=== PATIENT | male | born 1945 | race Caucasian/White ===

== ENCOUNTER → 2016-03-20 | Outpatient (CLI) | payer BC ==
[~2016-03-20] MED LIST: ASPI-435 PO; DIPH25TA24 PO; HYDC25 PO; POTA10CA28 PO; PRVC/40 PO
== END | disposition home or self-care (01) ==
LOC: C.LABBC 07:23
PROVIDERS: ATTEND Urology
DX: N40.1 Benign prostatic hyperplasia with lower urinary tract symptoms (principal)

== ENCOUNTER → 2016-04-15 | Outpatient (CLI) | payer BC ==
--- NOTE | 2016-04-15 11:19 | DIAGNOSTIC IMAGING REPORT ---
RIGHT FOOT MIN 3 VIEWS ROUTINE CLINICAL HISTORY: M79.671 Pain of right heel acute right heel [id number] Right pain COMPARISON: None. DISCUSSION: The bones and joint spaces appear intact. There is no evidence of fracture, dislocation or bony disease. There is no evidence for soft tissue swelling. IMPRESSION: Negative study. Electronically signed by: Ezra Parrish M.D. 04/15/2016 11:17 AM Dictated Date/Time: 04/15/2016 11:17 AM
[2016-04-15 13:11] LABS: HEMATOCRIT 45.9 % (42-52); MEAN CELL VOLUME 90.9 fL (80-100); MEAN CORPUSCULAR HEMOGLOBIN 31.5 pg (25-34); MEAN CORPUSCULAR HGB CONC 34.6 g/dl (32-36); MEAN PLATELET VOLUME 10.3 fL (7.4-10.4); PLATELET COUNT 201 K/uL (130-400); RED BLOOD COUNT 5.05 M/uL (4.7-6.1); WHITE BLOOD COUNT 7.06 K/uL (4.8-10.8)
== END | disposition home or self-care (01) ==
LOC: C.RADBC 10:42
PROVIDERS: ATTEND Internal Medicine
DX: M79.671 Pain in right foot (principal)

== ENCOUNTER → 2016-05-04 | Outpatient (CLI) | payer BC ==
--- NOTE | 2016-05-04 16:22 | DIAGNOSTIC IMAGING REPORT ---
CHEST 2 VIEWS ROUTINE CLINICAL HISTORY: Persistent cough COMPARISON STUDY: No previous studies for comparison. FINDINGS: The cardiac and mediastinal contours are normal. There is no evidence of focal pulmonary consolidation. There is no evidence of failure. There is minor blunting of the right posterior costophrenic angle..[ Linear opacities at the left lung base are felt to be atelectatic. IMPRESSION: 1. Minimal blunting of the right posterior costophrenic angle 2. Left basilar opacities, likely atelectatic 3. No evidence of failure. No evidence of lobar consolidation. Electronically signed by: Adryan Chirinos M.D. 05/04/2016 4:21 PM Dictated Date/Time: 05/04/2016 4:20 PM
== END | disposition home or self-care (01) ==
LOC: C.RAD1850 15:57
PROVIDERS: ATTEND Internal Medicine Geriatric Medicine
DX: R05 Cough (principal)

== ENCOUNTER → 2016-05-22 | Outpatient (CLI) | payer BC ==
--- NOTE | 2016-05-22 09:51 | DIAGNOSTIC IMAGING REPORT ---
CHEST 2 VIEWS ROUTINE CLINICAL HISTORY: R05 [id number] dyspnea COMPARISON STUDY: 05/04/2016 FINDINGS: Slight parenchymal prominence left lung base considered chronic. No well-defined focal infiltrate. No evidence for cardiac enlargement. Diaphragms smooth. IMPRESSION: Chronic basilar change. No acute process. Electronically signed by: Ezra Parrish M.D. 05/22/2016 9:50 AM Dictated Date/Time: 05/22/2016 9:49 AM
== END | disposition home or self-care (01) ==
LOC: C.RADBC 09:24
PROVIDERS: ATTEND Internal Medicine Geriatric Medicine
DX: R05 Cough (principal)

== ENCOUNTER → 2016-09-22 | Outpatient (CLI) | payer BC ==
--- NOTE | 2016-09-22 11:23 | DIAGNOSTIC IMAGING REPORT ---
LEFT KNEE 3 VIEWS CLINICAL HISTORY: 71 years-old Male presenting with left knee pain for a few months, no known injury or trauma. TECHNIQUE: Frontal, lateral, and sunrise views of the left knee were obtained. COMPARISON: None. FINDINGS: Knee joint is congruent. The joint space is preserved. Minimal osteophytosis may be present along the medial facet at the patellofemoral joint, however, overall there is no significant degenerative change. No acute fracture or malalignment. No knee joint effusion. Soft tissues are grossly normal. Atherosclerosis. IMPRESSION: 1. No significant osseous abnormality. Electronically signed by: Russ Iqbal M.D. 09/22/2016 11:22 AM Dictated Date/Time: 09/22/2016 11:20 AM
== END | disposition home or self-care (01) ==
LOC: C.RADBC 10:59
PROVIDERS: ATTEND Physician Assistant
DX: M25.562 Pain in left knee (principal)

== ENCOUNTER → 2016-11-18 | Outpatient (CLI) | payer BC ==
--- NOTE | 2016-11-18 09:17 | DIAGNOSTIC IMAGING REPORT ---
CHEST 2 VIEWS ROUTINE CLINICAL HISTORY: RHONCHI dyspnea COMPARISON STUDY: 05/22/2016 FINDINGS: Mild stable cardia megaly. Minimal parenchymal infiltrative change left and to lesser extent right base. Mid and upper lungs are clear. IMPRESSION: Mild left and to lesser extent right basilar parenchymal infiltrate. The above report was generated using voice recognition software. It may contain grammatical, syntax or spelling errors. Electronically signed by: Ezra Parrish M.D. 11/18/2016 9:16 AM Dictated Date/Time: 11/18/2016 9:15 AM
== END | disposition home or self-care (01) ==
LOC: C.RADBC 09:05
PROVIDERS: ATTEND Internal Medicine
DX: R09.89 Other specified symptoms and signs involving the circulatory and respiratory systems (principal)

== ENCOUNTER → 2016-12-08 | Outpatient (CLI) | payer BC ==
[2016-12-08 09:45] LABS: BASO % 1.6 %; BASO ABS # 0.08 K/uL (0-0.2); COMPLETE YES; HEMATOCRIT 46.9 % (42-52); IG% 0.2 %; LYMPH % 36.5 %; LYMPH ABS # 1.83 K/uL (1.2-3.4); MEAN CELL VOLUME 91.2 fL (80-100); MEAN CORPUSCULAR HEMOGLOBIN 31.3 pg (25-34); MEAN CORPUSCULAR HGB CONC 34.3 g/dl (32-36); MEAN PLATELET VOLUME 10.3 fL (7.4-10.4); MONO % 4.6 %; NEUT % 53.1 %; PLATELET COUNT 217 K/uL (130-400); RED BLOOD COUNT 5.14 M/uL (4.7-6.1); WHITE BLOOD COUNT 5.02 K/uL (4.8-10.8)
[2016-12-08 10:02] LABS: ESTIMATED AVERAGE GLUCOSE 108 mg/dl; HA1C FLAG Normal (Normal)
[2016-12-08 10:08] LABS: ALT/SGPT 33 U/L (12-78); BLOOD UREA NITROGEN 23 mg/dl (7-18); BUN/CREATININE RATIO 25.2 (10-20); CALCIUM 9.2 mg/dl (8.5-10.1); CARBON DIOXIDE 25 mmol/L (21-32); CHLORIDE 106 mmol/L (98-107); CHOLESTEROL 157 mg/dl (0-200); CREATININE 0.93 mg/dl (0.60-1.40); GLUCOSE 83 mg/dl (70-99); POTASSIUM 3.7 mmol/L (3.5-5.1); SODIUM 140 mmol/L (136-145); TRIGLYCERIDES 109 mg/dl (0-150); VERY LOW DENSITY LIPOPROT CALC 22 mg/dl
[2016-12-08 10:11] LABS: ALB/GLOB RATIO 1.2 (0.9-2); ALKALINE PHOSPHATASE 52 U/L (45-117); AST/SGOT 20 U/L (15-37); HDL CHOLESTEROL 39 mg/dl; LDL CHOLESTEROL CALCULATED 96 mg/dl
--- NOTE | 2016-12-15 11:53 | CODING QUERY MEDICAL NECESSITY ---
SUPPORTING DIAGNOSIS NEEDED Dr. Heller, A supporting diagnosis is required for the test/procedure performed on this patient in order for us to be reimbursed by the patient's insurance. Please provide a supporting diagnosis for the following test/procedure listed below next to the test name along with your signature. *If there is no additional diagnosis for this patient that would support the following test/procedure please document that below next to the test/procedure. Test(s)/Procedure(s) that require a supporting diagnosis: * 87420 GLYCATED HEMOGLOBIN DIAGNOSIS: DATE OF SERVICE: 12/08/16 Provider Signature: Date: Thank you Mike [facility] Information Management Once completed, please kindly fax back to [phone] For questions please call [phone]
== END | disposition home or self-care (01) ==
LOC: C.LAB 07:01
PROVIDERS: ATTEND Internal Medicine
DX: N20.0 Calculus of kidney (principal)

== ENCOUNTER → 2016-12-11 | Outpatient (CLI) | payer BC ==
--- NOTE | 2016-12-11 11:35 | DIAGNOSTIC IMAGING REPORT ---
TWO VIEW CHEST CLINICAL HISTORY: Rhonchi. Follow-up abnormal chest x-ray. FINDINGS: PA and lateral chest radiographs are compared to study dated 11/18/2016. The heart is top normal for projection. The pulmonary vasculature is noncongested. There is mild atherosclerotic calcification of the thoracic aorta. There is elevation of the right hemidiaphragm. There are mild residual patchy airspace opacities present at both lung bases. This has significantly cleared from 11/18/2016. There is no pleural effusion or pneumothorax. The skeletal structures appear osteopenic. The bony thorax appears intact. IMPRESSION: There are bibasilar airspace opacities which have largely cleared from 11/18/2016. Continued follow-up to complete resolution is recommended. Electronically signed by: Tyrese Marie M.D. 12/11/2016 11:34 AM Dictated Date/Time: 12/11/2016 11:33 AM
== END | disposition home or self-care (01) ==
LOC: C.RADBC 11:12
PROVIDERS: ATTEND Internal Medicine
DX: R09.89 Other specified symptoms and signs involving the circulatory and respiratory systems (principal); R91.8 Other nonspecific abnormal finding of lung field

== ENCOUNTER → 2016-12-26 | Outpatient (CLI) | payer BC ==
--- NOTE | 2016-12-26 09:44 | DIAGNOSTIC IMAGING REPORT ---
CHEST 2 VIEWS ROUTINE CLINICAL HISTORY: J18.9 Pneumonia COMPARISON STUDY: December 11, 2016 FINDINGS: The cardiac and mediastinal contours remain stable. There is been resolution of the previously identified bibasal airspace opacities. There is no acute parenchymal consolidation. There is no failure. There are no pleural effusions.[ IMPRESSION: No active disease in the chest. Electronically signed by: Adryan Chirinos M.D. 12/26/2016 9:42 AM Dictated Date/Time: 12/26/2016 9:42 AM
== END | disposition home or self-care (01) ==
LOC: C.RADBC 09:22
PROVIDERS: ATTEND Nurse Practitioner Adult Health
DX: J18.9 Pneumonia, unspecified organism (principal)

== ENCOUNTER → 2017-05-15 | Outpatient (CLI) | payer BC | END | disposition home or self-care (01) | LOC: C.LAB 09:00 | PROVIDERS: ATTEND Urology | DX: N40.1 Benign prostatic hyperplasia with lower urinary tract symptoms (principal) ==

== ENCOUNTER 2024-06-05 07:31 | Observation (INO) ==
--- NOTE | 2024-05-30 13:32 | Anesthesiology Consultation ---
Date of Service May 30, 2024 Assessment & Plan (1) Encounter for pre-operative examination: - Infectious disease screening: Per assessment on 05/30/24- No known recent infectious disease contacts or current infectious disease symptoms. - Neurosurgery visit (07/18/23): "..Incidental finding on CTA of basilar severe stenosis vs occlusion.. CTA Head/Neck 07/10/2023.. 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 Marked luminal stenosis of the mid basilar artery." F/U one year. Chart Review Chart Review: Acceptable Risk for Surgery and Patient NOT seen in Pre Admission Testing History Surgery Operation Date: 06/05/24 08:40 Proposed Procedures p TURP (Transurethral Resection of the Prostate), Prostate Mass, - Jonnathan Neives DO s Transurethral Resection of the Bladder - Jonnathan Nieves DO Height/Weight Height: 5 ft 8 in Weight: 92.986 kg Allergies Allergy/AdvReac Type Severity Reaction Status Date / Time bee venom protein (honey bee) Allergy Unknown Anaphylaxis Verified 05/30/24 12:09 - HAVEN'T HAD THAT IN YEARS PER PT No Known Drug Allergies Allergy Unknown Verified 05/30/24 12:09 Medications Home Medications Medication Instructions Recorded Confirmed Last Taken omega-3 fatty acids 1,000 mg 1,000 mg PO QAM 12/28/20 05/30/24 02/22/23 capsule (Fish Oil Concentrate) mecobalamin (vitamin B12) 1,000 1,000 mcg PO QAM 09/11/22 05/30/24 02/27/23 mcg chewable tablet carbidopa 25 mg-levodopa 100 mg 2 tab PO TID 11/27/22 05/30/24 03/01/23 06:00 tablet diphenhydramine HCl 25 mg capsule 12.5 mg PO HS Sleep 11/27/22 05/30/24 02/28/23 21:00 (Benadryl) nitroglycerin 0.4 mg sublingual 0.4 mg sublingual UD PRN Chest 03/15/23 05/30/24 Unknown tablet Pain #20 tabs acetaminophen 500 mg tablet 1,000 mg PO BID 05/30/24 05/30/24 Unknown alfuzosin 10 mg tablet,extended 10 mg PO QPM 05/30/24 05/30/24 Unknown release 24 hr cholecalciferol (vitamin D3) 25 25 mcg PO QAM 05/30/24 05/30/24 Unknown mcg (1,000 unit) capsule (Vitamin D3) dutasteride 0.5 mg capsule 0.5 mg PO QAM 05/30/24 05/30/24 Unknown melatonin 3 mg capsule 3 mg PO HS 05/30/24 05/30/24 Unknown potassium citrate 10 mEq (1,080 10 meq PO QAM 05/30/24 05/30/24 Unknown mg) tablet,extended release pravastatin 80 mg tablet 80 mg PO QAM 05/30/24 05/30/24 Unknown Past Medical History Medical History Basilar artery stenosis Under surveillance by [facility] neurosurgery Head/neck CTA 06/2023: Marked luminal stenosis of the mid basilar artery BPH with obstruction/lower urinary tract symptoms Bulging disc Lumbar History of COVID-19 10/2022- no current issues 2023- resolved Hx of bladder cancer Dx 02/2023 Hx of renal calculi Hyperlipidemia Hx Lumbar stenosis Mild balance issues due to lumbar issues- improved with PT Organic insomnia Parkinson disease "Stable - relatively mild" Snores No formal sleep study Vertebral artery stenosis Under surveillance by [facility] neurosurgery Head/neck CTA 06/2023: 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 Past Family History Family History Mother Alcoholism in family COPD (chronic obstructive pulmonary disease) Father Alcoholism in family Myocardial infarction Sister Alzheimer disease Breast cancer Brother Myocardial infarction Denies family history of Ovarian cancer Prostate cancer Diabetes Lung cancer Colorectal cancer Stroke Past Surgical History Surgical History Amputation finger left ring History of cardiac cath 2017- no stents History of cataract surgery R/L History of colonoscopy (2021) History of cystoscopy History of surgery Left leg- pins/screws (hardware remains) History of transurethral resection of bladder tumor (TURBT) 02/2023 History of urologic surgery R/t kidney stone S/P epidural steroid injection x2 Social History Smoking Status: Never smoker Do You Dip or Chew Tobacco: No Hx Alcohol Use: Yes Alcohol type: beer alcohol intake frequency: 0-2 drinks per day Hx Substance Use: No substance use type: does not use Lab Results Anesthesia Preop Results Results Anesthesia Widget: WBC 6.89 K/ul (4.8-10.8) 05/13/24 Hgb 16.2 g/dl (14.0-18.0) 05/13/24 Hct 47.9 % (42.0-52.0) 05/13/24 Plt 222 K/uL (130-400) 05/13/24 Na 141 mmol/L (136-145) 05/13/24 K 4.5 mmol/L (3.5-5.1) 05/13/24 Cl 106 mmol/L (98-107) 05/13/24 CO2 30 mmol/L (21-32) 05/13/24 BUN 28 mg/dl (6-23) H 05/13/24 Creat 0.92 mg/dl (0.6-1.4) 05/13/24 Glucose Level 95 mg/dl (70-99(Fasting)) 05/13/24 Testing Electrocardiogram Date: 05/13/24 Findings: + NSR @ (60) Chest X-Ray Date: 05/13/24 FINDINGS: Stable mild cardiomegaly without pulmonary vascular congestion. Stable minimal scarring in the lung bases. No new consolidation or pleural effusion. No gross evidence of pulmonary metastatic disease seen. IMPRESSION: No acute findings. Cardiac Catheterization Date: 01/16/18 Findings: LM -angiographically normal LAD -moderate caliber vessel, tapers in the mid segment after takeoff of first diagonal. Distal vessel is small with luminal irregularities and ends before apex. First diagonal without significant disease. Circumflex -moderate caliber vessel without significant disease. Moderate caliber OM 2 without disease. RCA -dominant, large caliber vessel, angiographically normal LVEDP -15 Summary: Essentially normal coronary arteries. Normal intracardiac filling pressure Other Testing Head/Neck CTA Date: 07/10/23 1. No acute intracranial abnormality detected by CT. 2. 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 3. Marked luminal stenosis of the mid basilar artery.
[2024-06-05] MEDS ORDERED: fentaNYL citrate PF 100 MCG/2 ML VIAL ONE (07:55)
[2024-06-05] MEDS ORDERED: PROPOFOL IV EMULSION 10 MG/ML 20 ML VIAL IV ONE ×2 (07:56→09:03)
[2024-06-05] MEDS ORDERED: fentaNYL citrate PF 100 MCG/2 ML VIAL IV PRN (08:04)
[2024-06-05] MEDS ORDERED: ATROPINE SULFATE 0.1 MG/ML 10ML SYR IV PRN (08:04)
[2024-06-05] MEDS ORDERED: ONDANSETRON INJ 2 MG/ML 2 ML VIAL IV PRN (08:04)
[2024-06-05] MEDS ORDERED: ePHEDrine sulfate 50 MG/ML AMP IV PRN (08:04)
[2024-06-05] MEDS: LR 15ML/HR IV SCH (08:12)
--- NOTE | 2024-06-05 08:23 | History & Physical Report ---
Date of Service June 05, 2024 Assessment & Plan (1) Bladder cancer: (2) Bladder mass: (3) Parkinsonism: (4) Metabolic disorder: (5) Borderline high blood pressure: Plan Risks and benefits discussed at length for procedure. These include bleeding, infection, injury to surrounding tissues or organs, and risks associated with anesthesia. Patient states understanding and agrees to proceed. Will sign consent and schedule. Plan for Cytoscopy with Possible TURBT, Possible TURP. History of Present Illness Primary Care Provider: Jose Bland DO Patient here for procedure. No changes in medical issues. No major changes in urinary issues. Continued issues and concerns. No change in pain or discomfort. No severe fevers or chills. No chest pain or shortness of breath. Risks and benefits discussed at length for procedure. These include bleeding, infection, injury to surrounding tissues or organs, and risks associated with anesthesia. Patient and/or family states understanding and agrees to proceed. Consent and supporting information completed. Allergies Allergy/AdvReac Type Severity Reaction Status Date / Time bee venom protein (honey bee) Allergy Unknown Anaphylaxis Verified 06/05/24 07:39 - HAVEN'T HAD THAT IN YEARS PER PT No Known Drug Allergies Allergy Unknown Verified 06/05/24 07:39 Home Medications Medication Instructions Recorded Confirmed Type omega-3 fatty acids 1,000 mg 1,000 mg PO QAM 12/28/20 06/05/24 History capsule (Fish Oil Concentrate) mecobalamin (vitamin B12) 1,000 1,000 mcg PO QAM 09/11/22 06/05/24 History mcg chewable tablet carbidopa 25 mg-levodopa 100 mg 2 tab PO TID 11/27/22 06/05/24 History tablet diphenhydramine HCl 25 mg capsule 12.5 mg PO HS Sleep 11/27/22 06/05/24 History (Benadryl) nitroglycerin 0.4 mg sublingual 0.4 mg sublingual UD PRN Chest 03/15/23 06/05/24 Rx tablet Pain #20 tabs acetaminophen 500 mg tablet 1,000 mg PO BID 05/30/24 06/05/24 History alfuzosin 10 mg tablet,extended 10 mg PO QPM 05/30/24 06/05/24 History release 24 hr cholecalciferol (vitamin D3) 25 25 mcg PO QAM 05/30/24 06/05/24 History mcg (1,000 unit) capsule (Vitamin D3) dutasteride 0.5 mg capsule 0.5 mg PO QAM 05/30/24 06/05/24 History melatonin 3 mg capsule 3 mg PO HS 05/30/24 06/05/24 History potassium citrate 10 mEq (1,080 10 meq PO QAM 05/30/24 06/05/24 History mg) tablet,extended release pravastatin 80 mg tablet 80 mg PO QAM 05/30/24 06/05/24 History Past Med/Surg History Problem List Bladder cancer Bladder mass Basilar artery stenosis Seen by [facility] 01/09/23- repeat imaging 06/2023 Parkinsonism Lymphocytic colitis Chronic diarrhea Encounter for pre-operative examination BPH with obstruction/lower urinary tract symptoms Solar dermatitis Cataract Borderline high blood pressure Neurogenic claudication Lumbar spinal stenosis Erectile dysfunction (Acute) Metabolic disorder (Chronic) Nocturia (Chronic) Organic insomnia Medical History Vertebral artery stenosis Under surveillance by [facility]surgery Head/neck CTA 06/2023: 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 Organic insomnia Hx of renal calculi BPH with obstruction/lower urinary tract symptoms Hx of bladder cancer Dx 02/2023 Basilar artery stenosis Under surveillance by [facility]surgery Head/neck CTA 06/2023: Marked luminal stenosis of the mid basilar artery Parkinson disease "Stable - relatively mild" History of COVID-19 10/2022- no current issues 2023- resolved Snores No formal sleep study Lumbar stenosis Mild balance issues due to lumbar issues- improved with PT Bulging disc Lumbar Hyperlipidemia Hx Surgical History S/P epidural steroid injection x2 History of transurethral resection of bladder tumor (TURBT) 02/2023 History of cystoscopy History of surgery Left leg- pins/screws (hardware remains) History of urologic surgery R/t kidney stone History of cataract surgery R/L History of cardiac cath 2017- no stents History of colonoscopy (2021) Amputation finger left ring Family History Mother Alcoholism in family COPD (chronic obstructive pulmonary disease) Father Alcoholism in family Myocardial infarction Sister Alzheimer disease Breast cancer Brother Myocardial infarction Denies family history of Ovarian cancer Prostate cancer Diabetes Lung cancer Colorectal cancer Stroke Social History Smoking Status: Never smoker Second Hand Exposure: Yes (hx); Do You Dip or Chew Tobacco: No; Tobacco Cessation Education Requested by Patient: No Hx Alcohol Use: Yes Alcohol type: beer Alcohol Intake Frequency: 4 or More x per/Week Hx Substance Use: No Preferred Language: Czech Communication Ability: Effective Visual Impairment: Limited Hearing Ability: Normal Waste Reduction Coordinator Required: No Beliefs That Will Affect Care: None marital status: Current Living Situation: Spouse current occupational status: retired How many Children do You have: 3 Other Information That Helps Us Care for You: No Feels Safe at Home: Yes Safety Concerns: Feels Safe At This Time Childhood Exposure to Second-Hand Smoke: Yes caffeine: Yes Dental Care, Regularly: Yes Physical Activity Frequency: 1-2 Times per Week Seatbelt Use: always Sunscreen Use: Yes Assistive Devices: Cane and Glasses Review of Systems All systems reviewed & are unremarkable except as noted in HPI & below Physical Exam Physical Exam: General: Alert/Arousable. No Acute illness. . HEENT: Inspection normal. Normal inspection of face. Normal inspection of neck. Psychologic: Normal affect/No change in mentation. Respiratory: No use of accessory muscles. No respiratory changes or exacerbation or changes with tachypnea or dyspnea. Cardiovascular: No tachycardia Skin: [place] and Dry. No new rashes or visible lesions. Abdomen: Normal inspection. No guarding. Results & Data Vital Signs (Past 12 Hours) Vital Signs Temp Pulse Resp BP Pulse Ox O2 Del Method 06/05/24 07:43 36.9 C 78 20 155/68 H 94 Room Air PG Care Time/CCT Total # of Minutes Spent Total Time Spent with Patient: Total time spent is greater than 50% in coordination of care (as documented) at patient's floor/unit and/or counseling patient: Coding Level of Care Code None Diagnoses Bladder cancer C67.9 Bladder mass N32.89 Parkinsonism G20 Metabolic disorder E88.9 Borderline high blood pressure R03.0
[2024-06-05] MEDS ORDERED: PHENAZOPYRIDINE HCL 200 MG TAB PO PRN (08:31)
[2024-06-05] MEDS ORDERED: oxyCODONE/ACETAMINOPHEN 5mg/325mg TAB PO PRN (08:31)
[2024-06-05] MEDS ORDERED: MoRPHine SULFATE 2 MG/ML CARP IV PRN (08:31)
[2024-06-05] MEDS ORDERED: NITROGLYCERIN SL 0.4 MG/TAB TAB SL PRN (08:34)
[2024-06-05] MEDS ORDERED: ePHEDrine sulfate 50 MG/5 ML SYR ONE (09:03)
[2024-06-05] MEDS ORDERED: PHENYLEPHRINE 100MCG/ML 5ML SYR ONE (09:03)
[2024-06-05] MEDS ORDERED: LIDOCAINE 2% 2 ML VIAL/AMP(20MG/ML) INFIL ONE (09:03)
[2024-06-05] MEDS ORDERED: ONDANSETRON INJ 2 MG/ML 2 ML VIAL ONE (09:03)
[2024-06-05] MEDS ORDERED: DEXAMETHASONE SOD INJ 4 MG/ML VIAL ONE (09:03)
[2024-06-05 09:40] LABS: Basophils # (auto) 0.07 K/uL (0.00-0.20); Eosinophils # (auto) 0.13 K/uL (0.00-0.50); Eosinophils % (auto) 1.9 %; Hematocrit (blood only) 43.2 % (42.0-52.0); Hemoglobin 15.2 g/dl (14.0-18.0); Immature Granulocytes # (auto) 0.01 K/uL (0.01-0.20); Immature Granulocytes % (auto) 0.1 %; Lymphocytes # (auto) 1.19 K/uL (1.20-3.40); Lymphocytes % (auto) 17.5 %; Mean Corpuscular Hemoglobin 32.5 pg (25.0-34.0); Mean Corpuscular Hgb Conc 35.2 g/dL (32.0-36.0); Mean Corpuscular Volume 92.5 fL (80.0-100.0); Mean Platelet Volume 10.3 fL (9.4-12.4); Monocytes # (auto) 0.28 K/uL (0.11-0.59); Monocytes % (auto) 4.1 %; Neutrophils # (auto) 5.12 K/uL (1.40-6.50); Neutrophils % (auto) 75.4 %; Platelet Count 195 K/uL (130-400); RDW Coefficient of Variation 12.4 % (11.5-14.5); RDW Standard Deviation 42.5 fL (36.4-46.3); Red Blood Count 4.67 M/uL (4.70-6.10)
--- NOTE | 2024-06-05 09:40 | Operative Report ---
PG Post Operative Report Pre & Post Diagnosis Operation Date: 06/05/24 08:45 Pre-Op Diagnosis: (1) Bladder cancer: (2) Bladder mass: Post-Op Diagnosis: (1) Bladder cancer: (2) Bladder mass: I identified the patient and participated in the time-out.: Yes Procedure Operation Date: 06/05/24 08:45 Actual Procedures TURP (Transurethral Resection of the Prostate) and Resection of Prostate Mass(Not Applicable) Transurethral Resection of the Bladder, Medium, Fulguration of Bladder - Jonnathan Nieves DO Surgeon Jonnathan Nieves, II, DO Newspaper Writer None Estimated Blood Loss 5 Findings Consistent with Post-Op Diagnosis Large Prostate with obstruction. Massive Median lobe. Irregular lesion on base of bladder/trigone at midline near bladder neck. Located under large median lobe. Lesion of bladder neck/trigone approx 3.2 cm in size. Irregular lesions of the posterior wall and dome. Thickened and inflammed. Specimens Bladder lesion/Bladder neck lesion Prostate adenoma. Drains 22Fr Catheter Anesthesia Type General Complications none Disposition Disposition: Recovery Room Indications Patient with obstruction due to prostate enlargement. Risks and benefits discussed at length. Description of Procedure Patient was consented and brought back to the operating room. Patient was placed under anesthesia in the supine position and moved to the dorsal lithotomy position. Patient was prepped and draped in the regular sterile fashion. A time out was completed. A 30degree Cystoscope was placed into the bladder and the entire bladder was examined. The UO's were identified as well as the bladder neck, trigone, dome, and the other important landmarks. The prostatic urethra and large lobes/adenoma was assessed and the veru and bladder neck identified and area/size was assessed. The resection scope was placed and the fine bipolar loop was selected. The median lobes was severely enlarged and projecting into the bladder. The bladder tumor appeared to be under the median lobe on the bladder neck/trigone. The lesion/tumor was resected. The lesion size was approx 3.2 cm. The base of the tumor/lesion was fulgurated. Additionally three irritated/ulcerated and thickened lesions were fulgurated on the posterior wall and dome. Attention was taken to the massive prostate median lobe. Starting at the 5 and 7 o'clock positions, a channel was created from bladder neck to the veru. The median lobe was then fully resected. The Specimen was removed and sent for analysis. The resection bed and any bleeding areas were fulgurated/cauterized and the entire area inspected. All bleeding was controlled. The bladder was inspected a final time. The bladder was emptied and irrigated. All specimen and debris was removed. The scope was removed with the bladder partially full. A catheter was placed and balloon elevated. This was easily irrigated. The patient was cleaned, aroused from anesthesia, and transferred to the pacu in stable condition having tolerated the procedure well with no complications. I was present and participated in all aspects of the procedure. The patient will be monitored in the PACU until transferred. Plan to maintain catheter for one week and followup in office for pathology and catheter removal. Will monitor overnight. I attest to the content of the Intraoperative Record and any orders documented therein. Any exceptions are noted below.
[2024-06-05 10:04] LABS: Anion Gap 5 (3-11); Bilirubin,Total 0.5 mg/dl (0.2-1.0); Calcium 8.7 mg/dl (8.6-10.3); Carbon Dioxide 27 mmol/L (21-32); Chloride 110 mmol/L (98-107); Potassium 3.8 mmol/L (3.5-5.1); Sodium 142 mmol/L (136-145)
[2024-06-05 10:10] LABS: BUN Creatinine Ratio 28.4 (10-20); Blood Urea Nitrogen 23 mg/dl (6-23); Creatinine Clr Calc Pharmacy 80.3 ml/min; Glucose 107 mg/dl (70-99(Fasting))
[2024-06-05 10:35] LABS: Alanine Aminotransferase < 3 U/L (7-52); Albumin Globulin Ratio 1.8 (0.9-2); Alkaline Phosphatase 48 U/L (34-104); Aspartate Aminotransferase 12 U/L (13-39); Globulin 2.2 gm/dl (2.5-4.0); Total Protein 6.2 gm/dl (6.0-8.3)
--- NOTE | 2024-06-05 11:21 | Anesthesiology Progress Note ---
Date of Service June 05, 2024 Anesthesia Post Procedure Vital Signs Vital Signs: Temp Pulse Pulse Resp BP Pulse Ox O2 Del Method 06/05/24 10:44 73 16 146/71 H 94 Nasal Cannula 06/05/24 10:30 69 19 148/84 H 95 Nasal Cannula 06/05/24 10:15 73 17 154/77 H 95 Nasal Cannula 06/05/24 10:00 72 16 147/75 H 93 Nasal Cannula 06/05/24 09:50 36.4 C L 67 18 153/75 H 93 Nasal Cannula 06/05/24 09:40 66 17 139/63 96 Oxymask 06/05/24 09:30 65 17 147/68 H 96 Oxymask 06/05/24 09:24 36.2 C L 67 13 139/70 97 Oxymask 06/05/24 07:43 36.9 C 78 20 155/68 H 94 Room Air O2 Flow Rate 06/05/24 10:44 2 06/05/24 10:30 2 06/05/24 10:15 2 06/05/24 10:00 2 06/05/24 09:50 2 06/05/24 09:40 4 06/05/24 09:30 4 06/05/24 09:24 6 06/05/24 07:43 Pain Intensity Bilateral Upper Abdomen: Pain Intensity: 4 Back: Pain Intensity: 3 Transfer of Care Handoff Completed per policy Notes Mental Status: alert / awake / arousable Patient Amnestic to Procedure: Yes Nausea / Vomiting: adequately controlled Pain: adequately controlled Airway Patency, RR, SpO2: stable & adequate BP & HR: stable & adequate Hydration State: stable & adequate Anesthetic Complications: no major complications apparent
[2024-06-05] MEDS: DOCUSATE SODIUM 100 MG CAP PO SCH (11:31)
--- NOTE | 2024-06-05 11:38 | Hospitalist Consultation ---
Date of Consultation June 05, 2024 Assessment & Plan (1) Bladder mass: Bladder mass/cancer S/p TURP/resection of mass 06/05/2024. 5 cc blood loss no complications reported. Follow pathology, outpatient follow-up based on results Parkinsonism Stable, continue Sinemet Borderline hypertension 127/81 postop, no indication for acute antihypertensive treatment at time of visit. Continue to monitor BPH with LUTS S/p urologic intervention as above. Continue Flomax. Finasteride continued, may convert back to dutasteride on discharge Catheter in place draining light pink-tinged urine Basilar artery stenosis Follows with [facility] neurosurgery. Had discussed medical versus surgical options, is following on serial imaging and with medical management at this time. His next angiography and follow-up with [facility] is scheduled for July No symptoms from this, denies strokelike symptoms Continue pravastatin Resume aspirin daily when acceptable bleeding risk per primary team History of neurogenic claudication Patient reports this is due to known lumbar stenosis for which he follows with [facility] Ortho. Lumbar MRI 01/2021 severe L3-L4 stenosis, moderate central stenosis L4-L5. Patient has been following as an outpatient for injections, has deferred surgery thus far and has not had progression requiring this. He reports that he has chronic weakness and some claudication in his legs however this has not changed recently. Has had some increase in pain and is due for his next injection with Dr. Scott No acute change in strength/sensation Denies arterial insufficiency/arterial claudication. PT pulses intact bilaterally with brisk cap refill in the feet bilaterally Continue outpatient follow-up Prior history of chest pain, family history of CAD with normal coronary angiography 2017 Cardiac cath 2017 for abnormal stress test showed normal coronary arteries Patient denies any recent anginal chest pain, chest pain with exertion although notes this is limited due to his parkinsonism and lumbar stenosis Continue primary prevention. Continue statin, can resume aspirin as noted (2) Basilar artery stenosis: (3) Parkinsonism: (4) Neurogenic claudication: (5) Borderline high blood pressure: History of Present Illness Attending Physician: Jonnathan Nieves, II, DO History of Present Illness Ron is an 78-year-old male with past medical history of parkinsonism, lymphocytic colitis, BPH/LUTS, neurogenic claudication, lumbar spinal stenosis, basilar artery stenosis who presented for TURP and resection of a prostate mass. We are consulted for postoperative medical management of comorbidities. Ron is seen at the bedside with his present. He reports he is doing well postprocedure with no questions or concerns. Did report to nursing he would like to try Tylenol before oxycodone which has been ordered. No chest pain chest pressure lightheadedness dizziness. He has a history of lumbar stenosis and claudication and is due for his next back injection however has not had any change recently in strength. He did have a cath several years ago and has a family history of MD, his coronaries at the time of his cath were normal. He does take a baby aspirin daily this was held since the beginning of the month perioperatively. He has not had any recent bleeding. No recent chest pain. No dyspnea. He has no history of CHF. Doing well at the bedside, no additional questions or concerns at time of visit. Medical History: Reviewed Medications: Reviewed Surgical History: Reviewed Family history: Reviewed Allergies: Reviewed Social History: Reviewed Code Status: Full code Allergies Allergy/AdvReac Type Severity Reaction Status Date / Time bee venom protein (honey bee) Allergy Unknown Anaphylaxis Verified 06/05/24 07:39 - HAVEN'T HAD THAT IN YEARS PER PT No Known Drug Allergies Allergy Unknown Verified 06/05/24 07:39 Home Medications Medication Instructions Recorded Confirmed Type omega-3 fatty acids 1,000 mg 1,000 mg PO QAM 12/28/20 06/05/24 History capsule (Fish Oil Concentrate) mecobalamin (vitamin B12) 1,000 1,000 mcg PO QAM 09/11/22 06/05/24 History mcg chewable tablet carbidopa 25 mg-levodopa 100 mg 2 tab PO TID 11/27/22 06/05/24 History tablet diphenhydramine HCl 25 mg capsule 12.5 mg PO HS Sleep 11/27/22 06/05/24 History (Benadryl) nitroglycerin 0.4 mg sublingual 0.4 mg sublingual UD PRN Chest 03/15/23 06/05/24 Rx tablet Pain #20 tabs acetaminophen 500 mg tablet 1,000 mg PO BID 05/30/24 06/05/24 History alfuzosin 10 mg tablet,extended 10 mg PO QPM 05/30/24 06/05/24 History release 24 hr cholecalciferol (vitamin D3) 25 25 mcg PO QAM 05/30/24 06/05/24 History mcg (1,000 unit) capsule (Vitamin D3) dutasteride 0.5 mg capsule 0.5 mg PO QAM 05/30/24 06/05/24 History melatonin 3 mg capsule 3 mg PO HS 05/30/24 06/05/24 History potassium citrate 10 mEq (1,080 10 meq PO QAM 05/30/24 06/05/24 History mg) tablet,extended release pravastatin 80 mg tablet 80 mg PO QAM 05/30/24 06/05/24 History Patient History Medical History Vertebral artery stenosis Under surveillance by 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 Organic insomnia Hx of renal calculi BPH with obstruction/lower urinary tract symptoms Hx of bladder cancer Dx 02/2023 Basilar artery stenosis Under surveillance by [facility] neurosurgery Head/neck CTA 06/2023: Marked luminal stenosis of the mid basilar artery Parkinson disease "Stable - relatively mild" History of COVID-19 10/2022- no current issues 2023- resolved Snores No formal sleep study Lumbar stenosis Mild balance issues due to lumbar issues- improved with PT Bulging disc Lumbar Hyperlipidemia Hx Surgical History S/P epidural steroid injection x2 History of transurethral resection of bladder tumor (TURBT) 02/2023 History of cystoscopy History of surgery Left leg- pins/screws (hardware remains) History of urologic surgery R/t kidney stone History of cataract surgery R/L History of cardiac cath 2017- no stents History of colonoscopy (2021) Amputation finger left ring Family History Mother Alcoholism in family COPD (chronic obstructive pulmonary disease) Father Alcoholism in family Myocardial infarction Sister Alzheimer disease Breast cancer Brother Myocardial infarction Denies family history of Ovarian cancer Prostate cancer Diabetes Lung cancer Colorectal cancer Stroke Social History Smoking Status: Never smoker Second Hand Exposure: Yes (hx); Do You Dip or Chew Tobacco: No; Tobacco Cessation Education Requested by Patient: No Hx Alcohol Use: Yes Alcohol type: beer Alcohol Intake Frequency: 4 or More x per/Week Hx Substance Use: No Preferred Language: Romansh Communication Ability: Effective Visual Impairment: Limited Hearing Ability: Normal Records Management Clerk Required: No Beliefs That Will Affect Care: None marital status: Current Living Situation: Spouse current occupational status: retired How many Children do You have: 3 Other Information That Helps Us Care for You: No Feels Safe at Home: Yes Safety Concerns: Feels Safe At This Time Childhood Exposure to Second-Hand Smoke: Yes caffeine: Yes Dental Care, Regularly: Yes Physical Activity Frequency: 1-2 Times per Week Seatbelt Use: always Sunscreen Use: Yes Assistive Devices: Cane and Glasses Physical Exam Physical Exam: General: A&Ox3. NAD. Cooperative. HEENT: Atraumatic, normocephalic. Vision and hearing grossly intact Pulm: Symmetrical chest rise. No increased work of breathing. No respiratory distress. Cardiac: RRR, Radial pulses intact and symmetrical. : Benedict in place draining light pink-tinged urine Extremities: Lower extremities warm and dry. No pitting edema. Cap refill is brisk, less than 2 seconds. PT pulses intact bilaterally. Sensation soft touch is intact in feet bilaterally. Results & Data Results & Data Vital Signs (Past 12 Hours) Vital Signs Temp Pulse Pulse Resp BP Pulse Ox O2 Del Method 06/05/24 11:00 36.6 C 76 16 160/76 H 92 Room Air 06/05/24 10:44 73 16 146/71 H 94 Nasal Cannula 06/05/24 10:30 69 19 148/84 H 95 Nasal Cannula 06/05/24 10:15 73 17 154/77 H 95 Nasal Cannula 06/05/24 10:00 72 16 147/75 H 93 Nasal Cannula 06/05/24 09:50 36.4 C L 67 18 153/75 H 93 Nasal Cannula 06/05/24 09:40 66 17 139/63 96 Oxymask 06/05/24 09:30 65 17 147/68 H 96 Oxymask 06/05/24 09:24 36.2 C L 67 13 139/70 97 Oxymask 06/05/24 07:43 36.9 C 78 20 155/68 H 94 Room Air O2 Flow Rate 06/05/24 11:00 06/05/24 10:44 2 06/05/24 10:30 2 06/05/24 10:15 2 06/05/24 10:00 2 06/05/24 09:50 2 06/05/24 09:40 4 06/05/24 09:30 4 06/05/24 09:24 6 06/05/24 07:43 PG Care Time/CCT Total # of Minutes Spent Total Time Spent with Patient: Total time spent is greater than 50% in coordination of care (as documented) at patient's floor/unit and/or counseling patient: Coding Level of Care Code 63131 IN/OBS CONSULT LVL 3,45M Diagnoses Bladder mass N32.89 Basilar artery stenosis I65.1 Parkinsonism G20 Neurogenic claudication G95.19 Borderline high blood pressure R03.0
[2024-06-05] MEDS: ACETAMINOPHEN 325 MG TAB PO PRN (12:02)
[2024-06-05] MEDS: ceFAZolin 2000MG 2,000 MG/15 ML SYR IV SCH ×2 (12:05→16:07)
[2024-06-05] MEDS: POTASSIUM CITRATE 10 MEQ TAB PO SCH (12:18)
[2024-06-05] MEDS: CARBIDOPA/LEVODOPA 25/100MG TAB PO SCH (13:52)
[2024-06-05 15:32] VITALS: RESP 18
[2024-06-05] MEDS: TAMSULOSIN HCL 0.4 MG CAP PO SCH (20:04)
[2024-06-05] MEDS: MELATONIN 3 MG TAB PO SCH (20:05)
[2024-06-05] MEDS: diphenhydrAMINE HCl 12.5 MG/5 ML UDC PO SCH (20:58)
[2024-06-05] MEDS ORDERED: diphenhydrAMINE Capsule 25 MG CAP PO SCH (21:00)
[2024-06-06 03:11] VITALS: TEMP 97.7
[2024-06-06 07:24] LABS: Hematocrit (blood only) 44.4 % (42.0-52.0); Hemoglobin 14.5 g/dl (14.0-18.0); Mean Corpuscular Hemoglobin 30.5 pg (25.0-34.0); Mean Corpuscular Hgb Conc 32.7 g/dL (32.0-36.0); Mean Corpuscular Volume 93.3 fL (80.0-100.0); Mean Platelet Volume 9.7 fL (9.4-12.4); Platelet Count 193 K/uL (130-400); RDW Coefficient of Variation 12.6 % (11.5-14.5); RDW Standard Deviation 43.6 fL (36.4-46.3); Red Blood Count 4.76 M/uL (4.70-6.10); White Blood Count 10.11 K/ul (4.8-10.8)
[2024-06-06] MEDS: FINASTERIDE 5 MG TAB PO SCH (07:27)
[2024-06-06 07:41] LABS: Albumin Globulin Ratio 1.8 (0.9-2); Albumin Level 4.2 gm/dl (3.4-5.0); BUN Creatinine Ratio 26.1 (10-20); Bilirubin,Total 0.5 mg/dl (0.2-1.0); Creatinine Clr Calc Pharmacy 71.3 ml/min; Globulin 2.3 gm/dl (2.5-4.0); Potassium 4.1 mmol/L (3.5-5.1); Total Protein 6.5 gm/dl (6.0-8.3)
[2024-06-06 07:45] VITALS: O2SAT 95
--- NOTE | 2024-06-06 10:20 | Hospitalist Progress Note ---
Date of Service June 06, 2024 Assessment & Plan (1) Bladder mass: (2) Basilar artery stenosis: (3) Parkinsonism: (4) Neurogenic claudication: (5) Borderline high blood pressure: Plan 78 year-old male with past medical history of bladder cancer, mid basilar artery stenosis, hyperlipidemia, parkinsonian-like disease, nocturia, insomnia, squamous cell carcinoma of scalp, actinic keratosis and elevated blood pressure. He presented for elective TURBT with Dr. Nieves on 06/05/2024. He has had a stable postoperative course with no complications. #Bladder mass/cancer / BPH with LUTS S/p TURP/resection of mass 06/05/2024. 5 cc blood loss, no complications reported Follow pathology, outpatient follow-up based on results Continue Flomax. Finasteride continued, may convert back to dutasteride on discharge Continue Benedict catheter as directed by urology #Elevated blood pressure Blood pressures have been 140-150s/70-80s while inpatient - this is reasonable given his age and being inpatient. Defer acute antihypertensive treatment at this time Encouraged patient to monitor BP at home, if persistently elevated recommend starting oral antihypertensive - will defer to PCP #Parkinsonism Stable, continue Sinemet #Basilar artery stenosis Follows with [facility] neurosurgery. Had discussed medical versus surgical options, is following on serial imaging and with medical management at this time. His next angiography and follow-up with [facility] is scheduled for July No symptoms from this, denies strokelike symptoms Continue pravastatin Resume aspirin daily when acceptable bleeding risk per primary team #History of neurogenic claudication Patient reports this is due to known lumbar stenosis for which he follows with [facility] Ortho. Lumbar MRI 01/2021 severe L3-L4 stenosis, moderate central stenosis L4-L5. Patient has been following as an outpatient for injections, has deferred surgery thus far and has not had progression requiring this. He reports that he has chronic weakness and some claudication in his legs however this has not changed recently. Has had some increase in pain and is due for his next injection with Dr. Scott No acute change in strength/sensation Denies arterial insufficiency/arterial claudication. PT pulses intact bilaterally with brisk cap refill in the feet bilaterally Continue outpatient follow-up #Prior history of chest pain, family history of CAD with normal coronary angiography 2017 Cardiac cath 2018 for abnormal stress test showed normal coronary arteries Patient denies any recent anginal chest pain, chest pain with exertion although notes this is limited due to his parkinsonism and lumbar stenosis Continue primary prevention. Continue statin, can resume aspirin as noted Dispo: Medically stable for discharge from hospital medicine's perspective Updated at bedside Admission and Anticipated Discharge Date Admission Date: June 05, 2024 Supervising Physician Co-Signing Physician Notes SABINA Supervision Note: I did not personally see or examine the patient today, but I verified all peters points of SABINA Taylor's assessment and plan with the following exceptions/additions: None Subjective Patient seen and evaluated at bedside with his present. He reports feeling well since his procedure. He denies any urinary complications and reports urology clamped his catheter earlier and will be back to see him again soon. He has passed gas and had a BM since his procedure. He is well-tolerating his diet. He denies headache, chest pain, shortness of breath, nausea, vomiting, abdominal pain, or urinary symptoms. We discussed his elevated blood pressures here, and he states that he does not consistently monitor his BP at home. Encouraged him to monitor his BP at home and contact his PCP if consistently >140 systolic. No additional complaints or concerns at this time. He is eager to be discharged home. Physical Exam Physical Exam: General: No acute distress, nondiaphoretic, well-developed, well-nourished. Cardiac: Regular rate and rhythm without murmurs gallops or rubs. Pulm: Clear to auscultation bilaterally without wheezes, rales or rhonchi. Normal respiratory effort. 95% on room air. Abdominal: Soft, nontender, nondistended. Bowel sounds present. : Benedict with blood tinged urine. Neuro: A&O x3. No focal neurological deficits. Results & Data Results & Data Vital Signs (Past 12 Hours) Vital Signs Temp Pulse Pulse Pulse Resp BP BP 06/06/24 07:43 97.7 F 56 L 18 158/82 H 06/06/24 07:11 54 L 06/06/24 03:00 97.7 F 53 L 18 146/75 H 06/05/24 22:40 97.9 F 58 L 18 131/72 06/05/24 22:24 Pulse Ox O2 Del Method 06/06/24 07:43 95 Room Air 06/06/24 07:11 06/06/24 03:00 91 Room Air 06/05/24 22:40 91 Room Air 06/05/24 22:24 Room Air Laboratory Results Reviewed CBC Reviewed BMP PG Care Time/CCT Total # of Minutes Spent Total Time Spent with Patient: Total time spent is greater than 50% in coordination of care (as documented) at patient's floor/unit and/or counseling patient: Coding Level of Care Code 65153 SUB INP/OBS CARE 2/35MIN Diagnoses Bladder mass N32.89 Basilar artery stenosis I65.1 Parkinsonism G20 Neurogenic claudication G95.19 Borderline high blood pressure R03.0
--- NOTE | 2024-06-06 11:12 | Urology Progress Note ---
Date of Service June 06, 2024 Assessment & Plan (1) BPH with obstruction/lower urinary tract symptoms: (2) Bladder mass: Plan - Pt POD#1 s/p TURP (Transurethral Resection of the Prostate) and Resection of Prostate Mass(Not Applicable), Transurethral Resection of the Bladder, Medium, Fulguration of Bladder - Doing well, progressing as expected - Afebrile, lab work reviewed - creatinine 0.92, WBC 10.11, Hgb 14.5 - 3 way Benedict catheter intact, patent and draining clear yellow urine with minimal pink tinge urine with CBI on slow - CBI clamped during exam this morning - Upon reassessment, urine remains appropriate - Maintain Benedict catheter - Discussed with hospital team, patient ready for discharge from medical perspective - Patient is ready for discharge, orders placed - Expected clinical course reviewed, all questions answered - Will arrange outpatient follow-up with our service for voiding trial and pathology review Admission and Anticipated Discharge Date Admission Date: June 05, 2024 Subjective Patient seen and examined at bedside this morning. at bedside. No acute issues overnight. Denies pain. Had bowel movement this morning. No fever or chills. Benedict intact and draining clear yellow urine with minimal pink tinge with CBI on slow. CBI clamped this morning. Review of Systems Constitutional: as per Subjective / HPI Genitourinary: + as per Subjective / HPI Physical Exam Constitutional: well developed and well nourished; no acute distress Respiratory: normal respiratory effort; no respiratory distress and no labored breathing Gastrointestinal (Abdomen): Inspection/Auscultation: abdomen normal to inspection Musculoskeletal: Head/Neck/Chest: normocephalic Neurologic: moves all extremities and awake Psychiatric: Orientation: alert and oriented x 3 Genitourinary: Benedict intact and draining clear yellow urine with minimal pink tinge with CBI on slow. CBI clamped during exam. Results & Data Vital Signs (Past 12 Hours) Vital Signs Temp Pulse Pulse Pulse Resp BP BP 06/06/24 07:43 36.5 C 56 L 18 158/82 H 06/06/24 07:11 54 L 06/06/24 03:00 36.5 C 53 L 18 146/75 H Pulse Ox O2 Del Method 06/06/24 07:43 95 Room Air 06/06/24 07:11 03/28/25 03:00 91 Room Air PG Care Time/CCT Total # of Minutes Spent Total Time Spent with Patient: Total time spent is greater than 50% in coordination of care (as documented) at patient's floor/unit and/or counseling patient: Coding Level of Care Code None Diagnoses BPH with obstruction/lower urinary tract symptoms N40.1; N13.8 Bladder mass N32.89
[2024-06-06 12:17] VITALS: PULSE 64
[2024-06-06 12:21] VITALS: BP 154/82
--- NOTE | 2024-06-06 13:13 | Discharge Summary ---
Date of Service June 06, 2024 Admission HPI Per Admitting Provider Patient here for procedure. No changes in medical issues. No major changes in urinary issues. Continued issues and concerns. No change in pain or discomfort. No severe fevers or chills. No chest pain or shortness of breath. Risks and benefits discussed at length for procedure. These include bleeding, infection, injury to surrounding tissues or organs, and risks associated with anesthesia. Patient and/or family states understanding and agrees to proceed. Consent and supporting information completed. Principal Diagnosis BPH, bladder mass Discharge Exam Constitutional well developed and well nourished; no acute distress Respiratory normal respiratory effort; no respiratory distress and no labored breathing Gastrointestinal (Abdomen) Inspection/Auscultation: abdomen normal to inspection Musculoskeletal Head/Neck/Chest: normocephalic Neurologic moves all extremities and awake Psychiatric Orientation: alert and oriented x 3 Genitourinary Benedict patent and draining yellow urine with minimal pink tinge Discharge Data Allergies Allergy/AdvReac Type Severity Reaction Status Date / Time bee venom protein (honey bee) Allergy Unknown Anaphylaxis Verified 06/05/24 07:39 - HAVEN'T HAD THAT IN YEARS PER PT No Known Drug Allergies Allergy Unknown Verified 06/05/24 07:39 Consultations 06/05/24 08:33 Consult Hospitalist Routine Procedures Performed Operation Date: 06/05/24 08:45 Actual Procedures p TURP (Transurethral Resection of the Prostate), Prostate Mass(Not Applicable) - Jonnathan Nieves DO s Transurethral Resection of the Bladder medium, Fulgeration of Bladder Medium(Not Applicable) - Jonnathan Nieves DO Hospital Course (1) BPH with obstruction/lower urinary tract symptoms: (2) Bladder mass: Plan - Pt POD#1 s/p TURP (Transurethral Resection of the Prostate) and Resection of Prostate Mass(Not Applicable), Transurethral Resection of the Bladder, Medium, Fulguration of Bladder - Doing well, progressing as expected - Afebrile, lab work reviewed - creatinine 0.92, WBC 10.11, Hgb 14.5 - 3 way Benedict catheter intact, patent and draining clear yellow urine with minimal pink tinge urine with CBI on slow - CBI clamped during exam this morning - Upon reassessment, urine remains appropriate - Maintain Benedict catheter - Discussed with hospital team, patient ready for discharge from medical perspective - Patient is ready for discharge, orders placed - Expected clinical course reviewed, all questions answered - Will arrange outpatient follow-up with our service for voiding trial and pathology review Total Time Total Time Spent Total Time Spent (In Minutes): 25 Discharge Plan Discharge Items Patient Disposition: Home - Self-Care Reason For Visit: Bladder Cancer, Bladder Mass, Benign Prostatic Hyp Discharge Diagnosis: Bladder cancer, bladder mass, benign prostatic hyp Activity: Per Instructions section Lifting: No more than 25 pounds Sexual Activity: Wait until after follow-up appointment Exercise/Sports: Wait until after follow-up appointment Non-emergency contact: Surgeon Call non-emergency contact if: your pain is worsening, you have a fever and your temperature is above 101 Follow-up/Referrals: Jonnathan Nieves DO [Physician] - 06/11/24 9:30 am Jose Bland DO [Primary Care Provider] - Diet: Regular Addtl Attending Provider Instructions: Please take all medications as prescribed and keep all follow-ups as scheduled. Please call our office at [phone] with any questions, concerns or need to reschedule appointments for any reason. We are happy to assist you. Tips for your recovery at home: Dont be alarmed by brownish or reddish blood or clots in your urine. This is a result of the procedure. This may occur off and on for weeks to months after the procedure but should continue to improve. Drink plenty of fluids during the day (enough to keep your urine very light colored). This will help keep a healthy flow of urine. Do not lift >25 lbs until your followup Avoid constipation. Please use a stool softener (Colace) for the first two weeks after your procedure Be sure to finish the antibiotics as prescribed. If you go home with a catheter, please wash tubing where it enters your body twice daily with mild soap (Dove or Dial). Once your catheter is removed, expect some blood in your urine and some burning when you urinate. You should have an appointment to have this removed, if you do not please call our office to arrange. Pending Studies at Discharge: Yes Stand-Alone Forms: My Appiterate, Smoking Cessation Medications and DC Order Prescriptions: New phenazopyridine [Pyridium] 200 mg tablet 200 mg PO Q8H PRN (Reason: pain) Qty: 10 0RF cephalexin 500 mg capsule 500 mg PO BID 7 Days Qty: 14 0RF Continued omega-3 fatty acids [Fish Oil Concentrate] 1,000 mg capsule 1,000 mg PO QAM carbidopa-levodopa 25-100 mg tablet 2 tab PO TID diphenhydramine HCl [Benadryl] 25 mg capsule 12.5 mg PO HS mecobalamin (vitamin B12) 1,000 mcg tablet,chewable 1,000 mcg PO QAM nitroglycerin 0.4 mg tablet, sublingual 0.4 mg sublingual UD PRN (Reason: Chest Pain) Qty: 20 3RF Rx Instructions: 1 TAB UNDER TONGUE EVERY 5 MINS FOR UP TO 3 DOSES NEEDED FOR CHEST PAIN. CALL 911 IF PAIN PERSISTS ; acetaminophen 500 mg Tablet 1,000 mg PO BID cholecalciferol (vitamin D3) [Vitamin D3] 25 mcg (1,000 unit) Capsule 25 mcg PO QAM melatonin 3 mg Capsule 3 mg PO HS pravastatin 80 mg tablet 80 mg PO QAM Rx Instructions: TAKE ONE TABLET BY MOUTH DAILY potassium citrate 10 mEq (1,080 mg) tablet extended release 10 meq PO QAM dutasteride 0.5 mg capsule 0.5 mg PO QAM Rx Instructions: TAKE ONE CAPSULE BY MOUTH EVERY DAY alfuzosin 10 mg tablet extended release 24 hr 10 mg PO QPM Rx Instructions: Take after supper Discharge Orders: Discharge Order (Routine); Ordered 06/06/24 Ordered By: Rita Heller Admission Data Admit Date/Time: 06/05/24 08:31 Attending Provider: Jonnathan Nieves Admit Provider: Jonnathan Nieves Primary Care Provider: Jose Bland Other Providers: Ayala Armenta Other Interventions: Discharge Summary Assessment (RN) Last Done: 06/06/24 11:37 Coding Level of Care Code 92399 IN/OBS DISCH 30 MIN/LESS Diagnoses BPH with obstruction/lower urinary tract symptoms N40.1; N13.8 Bladder mass N32.89
== END 2024-06-06 13:05 | disposition home or self-care (01) ==
LOC: PACUINP 07:31 → ASU 07:31 → 2W 11:21